=== PATIENT | male | born 1980 ===

== ENCOUNTER 2020-04-11 13:43 | Emergency (ER) | payer OTHER ==
[~2020-04-11] VITALS: Ht 180.3 cm; Wt 83.9 kg
[~2020-04-11 13:43] MED LIST: ACETAMINOPHEN500 MG PO; Permethrin60 GM TP; Prednisone20 MG PO
[2020-04-11] MEDS ORDERED: Vibramycin100 MG PO (14:35)
== END 2020-04-11 14:49 | disposition home or self-care (01) ==
LOC: ER 13:43
DX: N45.1 Epididymitis (principal); F17.200 Nicotine dependence, unspecified, uncomplicated
CPT/HCPCS: 76870; 96372; 99284-25; A9270; J0696

== ENCOUNTER 2020-06-18 09:40 | Emergency (ER) | payer OTHER ==
[~2020-06-18] VITALS: Ht 180.3 cm; Wt 90.3 kg
[~2020-06-18 09:40] MED LIST changes: +Vibramycin100 MG PO
[2020-06-18] MEDS ORDERED: GLYDO6 M2 PO (11:25)
[2020-06-18] MEDS ORDERED: IBUP400 PO (11:26)
== END 2020-06-18 11:29 | disposition home or self-care (01) ==
LOC: ER 09:40
DX: J03.90 Acute tonsillitis, unspecified (principal); R00.0 Tachycardia, unspecified; F17.210 Nicotine dependence, cigarettes, uncomplicated
CPT/HCPCS: 87081; 87147; 87430; 99284; A9270; J1100

== ENCOUNTER 2021-08-06 10:34 | Emergency (ER) | payer OTHER ==
[~2021-08-06] VITALS: Ht 180.3 cm; Wt 86.2 kg
[~2021-08-06 10:34] MED LIST changes: +GLYDO6 M2 PO; +IBUP400 PO
== END 2021-08-06 11:56 | disposition home or self-care (01) ==
LOC: ER 10:34
DX: J02.0 Streptococcal pharyngitis (principal); F17.210 Nicotine dependence, cigarettes, uncomplicated
CPT/HCPCS: 87430; J0561; J1100